=== PATIENT | male | born 1990 | race American Indian/Alaskan Native ===

== ENCOUNTER 2019-11-20 08:37 | Emergency (ER) | payer OTHER ==
--- NOTE | 2019-11-20 09:09 | EDM.PDOC ---
"ED HPI GENERAL MEDICAL PROBLEM - General Chief Complaint: Abdominal Pain Stated Complaint: ABDOMINAL PAIN Time Seen by Provider: 11/20/19 09:00 Source of Information: Reports: Patient, Old Records, RN, RN Notes Reviewed History Limitations: Reports: No Limitations - History of Present Illness INITIAL COMMENTS - FREE TEXT/NARRATIVE: Pt presents to ER from home by POV with c/o RLQ abdominal pain with nausea and feverish feeling. He has not measured his temperature. He also c/o penile discharge and is worried that he might have an STD again. Denies cough, sore throat, chest pain, or any COVID exposures. Onset: Gradual Onset Date: 11/19/19 Duration: Getting Worse, Waxing/Waning Location: Reports: Abdomen Quality: Reports: Ache Severity: Severe Improves with: Reports: None Worsens with: Reports: None Associated Symptoms: Reports: No Other Symptoms Lower Abdomen Pain Score (Numeric/FACES): 10 - Related Data Allergies Allergy/AdvReac Type Severity Reaction Status Date / Time No Known Allergies Allergy Verified 11/20/19 10:06 Home Meds: Home Meds . [No Known Home Meds] 11/20/19 [History] Past Medical History Genitourinary History: Reports: STD Social & Family History - Family History Family Medical History: Noncontributory - Living Situation & Occupation Living situation: Reports: with Family ED ROS GENERAL - Review of Systems Review Of Systems: Comprehensive ROS is negative, except as noted in HPI. ED EXAM, GI/ABD - Physical Exam Exam: See Below Exam Limited By: No Limitations General Appearance: Alert, WD/WN, No Apparent Distress, Anxious, Mild Distress (due to pain). No: Active Emesis Eyes: Bilateral: Normal Appearance (No scleral icterus) Nose: Normal Inspection Throat/Mouth: Normal Inspection, Normal Lips, Normal Voice, No Airway Compromise Head: Atraumatic, Normocephalic Neck: Normal Inspection Respiratory/Chest: No Respiratory Distress, Lungs Clear, Normal Breath Sounds, No Accessory Muscle Use, Chest Non-Tender Cardiovascular: Regular Rate, Rhythm, No Edema, Tachycardia GI/Abdominal Exam: Normal Bowel Sounds, Soft, No Organomegaly, No Distention, No Abnormal Bruit, No Mass, Pelvis Stable, Rebound (RLQ), Tender (RLQ is acutely tender. Also tender at suprapubic area.). No: Guarding, Rigid (Male) Exam: Urethral Discharge Rectal (Males) Exam: Other (Pt refuses JOSE.) Back Exam: Normal Inspection. No: CVA Tenderness (L), CVA Tenderness (R) Extremities: Normal Inspection Neurological: Alert, Oriented, No Motor/Sensory Deficits Psychiatric: Anxious, Flat Affect Skin Exam: Warm, Dry, Intact, Normal Color, No Rash Course - Vital Signs Last Recorded V/S: Last Vital Signs Temp 98 F 11/20/19 08:40 Pulse 81 11/20/19 08:40 Resp 16 11/20/19 08:40 BP 131/76 11/20/19 08:40 Pulse Ox 100 11/20/19 08:40 - Orders/Labs/Meds Orders: Active Orders 24 hr Category Date Time Status Peripheral IV Care [RC] . DIRECTED Care 11/20/19 09:13 Active CHLAMYDIA AND GONORRHEA BY TMA Routine Lab 11/20/19 08:54 Ordered CULTURE URINE [RM] Stat Lab 11/20/19 10:27 Received UA W/MICROSCOPIC [URIN] Stat Lab 11/20/19 10:27 Results Piperacillin/Tazobactam [Zosyn] 3.375 gm Med 11/20/19 10:29 Ordered Sodium Chloride 0.9% [Normal Saline] 100 ml IV ONETIME Sodium Chloride 0.9% [Saline Flush] Med 11/20/19 09:13 Active 10 ml FLUSH ASDIRECTED PRN cefTRIAXone [Rocephin] 1 gm Med 11/20/19 10:27 Ordered Sodium Chloride 0.9% [Normal Saline] 50 ml IV ONETIME Peripheral IV Insertion Adult [OM.PC] Stat Oth 11/20/19 09:13 Ordered Medication Orders Ceftriaxone Sodium 1 gm/ (Sodium Chloride) 50 mls @ 100 mls/hr IV ONETIME ONE Stop: 11/20/19 10:56 Piperacillin Sod/Tazobactam (Sod 3.375 gm/ Sodium Chloride) 100 mls @ 200 mls/hr IV ONETIME ONE Stop: 11/20/19 10:58 Sodium Chloride (Saline Flush) 10 ml FLUSH ASDIRECTED PRN PRN Reason: Keep Vein Open Last Admin: 11/20/19 09:28 Dose: 10 ml Documented by: CAMERON Labs: Laboratory Tests 10/07/20 10/07/20 10/07/20 Range/Units 09:08 09:08 10:27 WBC 11.2 H (5.0-10.0) 10^3/uL RBC 4.72 (4.6-6.2) 10^6/uL Hgb 14.1 (14.0-18.0) g/dL Hct 40.0 (40.0-54.0) % MCV 84.7 (80-100) fL MCH 29.9 (27.0-34.0) pg MCHC 35.3 H (33.0-35.0) g/dL Plt Count 321 (150-450) 10^3/uL Neut % (Auto) 77.0 H (42.2-75.2) % Lymph % (Auto) 13.3 L (20.5-50.1) % [place] % (Auto) 7.4 (2-8) % Eos % (Auto) 2.1 (1.0-3.0) % Baso % (Auto) 0.2 (0.0-1.0) % Sodium 140 (136-145) mmol/L Potassium 3.5 (3.5-5.1) mmol/L Chloride 100 (98-107) mmol/L Carbon Dioxide 32 (21-32) mmol/L Anion Gap 11.5 (7-13) mEq/L BUN 9 (7-18) mg/dL Creatinine 1.03 (0.70-1.30) mg/dL Est Cr Clr Drug Dosing TNP Estimated GFR (MDRD) > 60 BUN/Creatinine Ratio 8.7 (No establ ref range) Glucose 127 H (74-99) mg/dL Calcium 8.7 (8.5-10.1) mg/dL Total Bilirubin 0.4 (0.2-1.0) mg/dL AST 9 L (15-37) U/L ALT 17 (16-63) U/L Alkaline Phosphatase 84 (46-116) U/L Total Protein 7.5 (6.4-8.2) g/dL Albumin 3.2 L (3.4-5.0) g/dL Globulin 4.3 Albumin/Globulin Ratio 0.74 Amylase 34 (25-115) U/L Lipase 67 L (73-393) U/L Urine Color Yellow (YELLOW) Urine Appearance Cloudy (CLEAR) Urine pH 8.0 (5.0-9.0) Ur Specific [place] 1.020 (1.005-1.030) Urine Protein Negative (NEGATIVE) Urine Glucose (UA) Negative (NEGATIVE) Urine Ketones Negative (NEGATIVE) Urine Occult Blood Trace-intact H (NEGATIVE) Urine Nitrite Negative (NEGATIVE) Urine Bilirubin Negative (NEGATIVE) Urine Urobilinogen 0.2 (0.2-1.0) mg/dL Ur Leukocyte Esterase Small H (NEGATIVE) Urine Opiates Screen (NEGATIVE) Ur Oxycodone Screen (NEGATIVE) Urine Methadone Screen (NEGATIVE) Ur Barbiturates Screen (NEGATIVE) U Tricyclic Antidepress (NEGATIVE) Ur Phencyclidine Scrn (NEGATIVE) Ur Amphetamine Screen (NEGATIVE) U Methamphetamines Scrn (NEGATIVE) Urine MDMA Screen (NEGATIVE) U Benzodiazepines Scrn (NEGATIVE) Urine Cocaine Screen (NEGATIVE) U Marijuana (THC) Screen (NEGATIVE) 11/20/19 Range/Units 10:27 WBC (5.0-10.0) 10^3/uL RBC (4.6-6.2) 10^6/uL Hgb (14.0-18.0) g/dL Hct (40.0-54.0) % MCV (80-100) fL MCH (27.0-34.0) pg MCHC (33.0-35.0) g/dL Plt Count (150-450) 10^3/uL Neut % (Auto) (42.2-75.2) % Lymph % (Auto) (20.5-50.1) % [place] % (Auto) (2-8) % Eos % (Auto) (1.0-3.0) % Baso % (Auto) (0.0-1.0) % Sodium (136-145) mmol/L Potassium (3.5-5.1) mmol/L Chloride (98-107) mmol/L Carbon Dioxide (21-32) mmol/L Anion Gap (7-13) mEq/L BUN (7-18) mg/dL Creatinine (0.70-1.30) mg/dL Est Cr Clr Drug Dosing Estimated GFR (MDRD) BUN/Creatinine Ratio (No establ ref range) Glucose (74-99) mg/dL Calcium (8.5-10.1) mg/dL Total Bilirubin (0.2-1.0) mg/dL AST (15-37) U/L ALT (16-63) U/L Alkaline Phosphatase (46-116) U/L Total Protein (6.4-8.2) g/dL Albumin (3.4-5.0) g/dL Globulin Albumin/Globulin Ratio Amylase (25-115) U/L Lipase (73-393) U/L Urine Color (YELLOW) Urine Appearance (CLEAR) Urine pH (5.0-9.0) Ur Specific [place] (1.005-1.030) Urine Protein (NEGATIVE) Urine Glucose (UA) (NEGATIVE) Urine Ketones (NEGATIVE) Urine Occult Blood (NEGATIVE) Urine Nitrite (NEGATIVE) Urine Bilirubin (NEGATIVE) Urine Urobilinogen (0.2-1.0) mg/dL Ur Leukocyte Esterase (NEGATIVE) Urine Opiates Screen Positive H (NEGATIVE) Ur Oxycodone Screen Negative (NEGATIVE) Urine Methadone Screen Negative (NEGATIVE) Ur Barbiturates Screen Negative (NEGATIVE) U Tricyclic Antidepress Negative (NEGATIVE) Ur Phencyclidine Scrn Negative (NEGATIVE) Ur Amphetamine Screen Positive H (NEGATIVE) U Methamphetamines Scrn Positive H (NEGATIVE) Urine MDMA Screen Positive H (NEGATIVE) U Benzodiazepines Scrn Negative (NEGATIVE) Urine Cocaine Screen Negative (NEGATIVE) U Marijuana (THC) Screen Positive H (NEGATIVE) Meds: Medications Generic Name Dose Route Start Last Admin Trade Name Freq PRN Reason Stop Dose Admin Ceftriaxone Sodium 1 gm/ 50 mls @ 100 mls/hr 11/20/19 10:27 Sodium Chloride IV 11/20/19 10:56 ONETIME ONE Piperacillin Sod/Tazobactam 100 mls @ 200 mls/hr 11/20/19 10:29 Sod 3.375 gm/ Sodium Chloride IV 11/20/19 10:58 ONETIME ONE Sodium Chloride 10 ml 11/20/19 09:13 11/20/19 09:28 Saline Flush FLUSH 10 ml ASDIRECTED PRN Administration Keep Vein Open Discontinued Medications Generic Name Dose Route Start Last Admin Trade Name Freq PRN Reason Stop Dose Admin Azithromycin 1,000 mg 11/20/19 10:29 Zithromax PO 11/20/19 10:30 ONETIME ONE Hydromorphone HCl 1 mg 11/20/19 09:13 11/20/19 09:26 Dilaudid IVPUSH 11/20/19 09:14 1 mg ONETIME ONE Administration Hydromorphone HCl 1 mg 11/20/19 10:26 Dilaudid IVPUSH 11/20/19 10:27 ONETIME ONE Sodium Chloride 1,000 mls @ 999 mls/hr 11/20/19 09:13 11/20/19 09:28 Normal Saline IV 11/20/19 10:13 999 mls/hr .BOLUS ONE Administration Iopamidol 100 ml 11/20/19 09:13 11/20/19 09:55 Isovue-300 (61%) IVPUSH 11/20/19 09:14 99 ml ONETIME ONE Administration Ondansetron HCl 4 mg 11/20/19 09:13 11/20/19 09:26 Zofran IV 11/20/19 09:14 4 mg ONETIME ONE Administration Ondansetron HCl 4 mg 11/20/19 10:26 11/20/19 10:50 Zofran IV 11/20/19 10:27 4 mg ONETIME ONE Administration - Radiology Interpretation Free Text/Narrative:: [facility] Final Radiology Report Call: [phone] assistance Online chat: [email or web address] Name: ELISHA HUSSEIN Age: 29Years M Date: 11/20/2019 SSN: -- [id number] Study: CT ABDOMEN PELVIS W CONT Requesting Physician: MIRANDA CHUNG Images: [id number] Addl Studies: Provided Clinical History: RLQ pain w/rebound, suspect appendicitis Contrast: With Contrast Medium: Isovue 300 Contrast Amount: 99 mL Contrast Method: Intravenous (IV) Page 1 of 2 PROCEDURE INFORMATION: Exam: CT Abdomen And Pelvis With Contrast Exam date and time: 11/20/2019 9:44 AM Age: 29 years old Clinical indication: Other: Rlq pain w/rebound, suspect appendicitis TECHNIQUE: Imaging protocol: Computed tomography of the abdomen and pelvis with intravenous contrast. Radiation optimization: All CT scans at this facility use at least one of these dose optimization techniques: automated exposure control; mA and/or kV adjustment per patient size (includes targeted exams where dose is matched to clinical indication); or iterative reconstruction. Contrast material: ISOVUE 300; Contrast volume: 99 ml; Contrast route: INTRAVENOUS (IV); COMPARISON: No relevant prior studies available. FINDINGS: Liver: Normal. Gallbladder and bile ducts: Normal. Pancreas: Normal. Spleen: Normal. Adrenals: Normal. Kidneys and ureters: Normal. Stomach and bowel: Retrocecal appendix with typical cecal positioning. The appendix is mildly enlarged up to 8 mm but filled with fluid and gas. There is questionable appendicolith. No mural hyperenhancement. There is slight infiltration of the fat in the right lower abdomen, not necessarily strictly periappendiceal.. There is mildly increased fluid in distal small bowel. Intraperitoneal space: There is stranding fluid deep in the pelvis and partly encompassing portions of prostate and seminal vesicles. No fluid collecting in the mesentery or paracolic gutters. ELISHA HUSSEIN | Final Radiology Report CONFIDENTIALITY STATEMENT This report is intended only for use by the referring physician, and only in accordance with law. If you received this in error, call [phone]. Page 2 of 2 Vasculature: Benign variant retroaortic left renal vein. Lymph nodes: No inguinal, mesenteric or retroperitoneal adenopathy. Bilateral pelvic lymph nodes are mildly enlarged up to 0.7 cm on short axis. Urinary bladder: Unremarkable as visualized. Reproductive: The prostate is enlarged for age, 4.3 x 4.4 cm in the axial plane. Bones/joints: No fracture or suspicious osseous lesion. Soft tissues: No mass or hernia. IMPRESSION: Abnormal CT abdomen and pelvis with definite evidence of inflammatory disease though not necessarily appendicitis. The small amount of ascites and the greatest region of fatty infiltration is distant from the appendix and there are mildly enlarged pelvic lymph nodes in addition to a prostate which is larger than expected and around which there is fatty infiltration. Clinical correlation for prostatitis/urethritis is recommended. If negative, possibility of very early appendicitis would be more strongly considered. Thank you for allowing us to participate in the care of your patient. Dictated and Authenticated by: Tono Lynne MD 11/20/2019 10:17 AM Central Time ([place] & [place]) - Re-Assessments/Exams Free Text/Narrative Re-Assessment/Exam: 11/20/19 10:45 I thing the pt has two processes present, one being appendicitis, and the other being STD/ infection involving the urethra, prostate, and seminal vesicles. Plan tx pt empirically for STD with Rocephin 1g IVP, and Zithromax 1g po. Appendicitis will be covered with Zosyn 3.375g IV. Pt will be transferred to [facility] for evaluation and treatment by Dr. Thornton. Departure - Departure Time of Disposition: 10:50 Disposition: DC/Tfer to [facility] 02 Condition: Fair Clinical Impression: STD exposure Appendicitis Qualifiers: Appendicitis type: acute appendicitis Acute appendicitis type: with localized peritonitis Appendicitis gangrene presence: without gangrene Appendicitis perf oration presence: without perforation Appendicitis abscess presence: without abscess Qualified Code(s): K35.30 - Acute appendicitis with localized peritonitis, without perforation or gangrene Prostatitis, unspecified Qualifiers: Prostatitis type: unspecified Qualified Code(s): N41.9 - Inflammatory disease of prostate, unspecified - Discharge Information *PRESCRIPTION DRUG MONITORING PROGRAM REVIEWED*: Not Applicable *COPY OF PRESCRIPTION DRUG MONITORING REPORT IN PATIENT IRVIN: Not Applicable Forms: ED Department Discharge, Interfacility Transfer EMTALA Sepsis Event Note (ED) - Focused Exam Vital Signs: Vital Signs Temp Pulse Resp BP Pulse Ox 11/20/19 08:40 98 F 81 16 131/76 100 - My Orders Last 24 Hours: My Active Orders 11/20/19 08:54 CHLAMYDIA AND GONORRHEA BY TMA Routine 11/20/19 09:13 Peripheral IV Care [RC] . DIRECTED Sodium Chloride 0.9% [Saline Flush] 10 ml FLUSH ASDIRECTED PRN Peripheral IV Insertion Adult [OM.PC] Stat 11/20/19 10:27 CULTURE URINE [RM] Stat UA W/MICROSCOPIC [URIN] Stat cefTRIAXone [Rocephin] 1 gm Sodium Chloride 0.9% [Normal Saline] 50 ml IV ONETIME 11/20/19 10:29 Piperacillin/Tazobactam [Zosyn] 3.375 gm Sodium Chloride 0.9% [Normal Saline] 100 ml IV ONETIME - Assessment/Plan Last 24 Hours: My Active Orders 11/20/19 08:54 CHLAMYDIA AND GONORRHEA BY TMA Routine 11/20/19 09:13 Peripheral IV Care [RC] . DIRECTED Sodium Chloride 0.9% [Saline Flush] 10 ml FLUSH ASDIRECTED PRN Peripheral IV Insertion Adult [OM.PC] Stat 11/20/19 10:27 CULTURE URINE [RM] Stat UA W/MICROSCOPIC [URIN] Stat cefTRIAXone [Rocephin] 1 gm Sodium Chloride 0.9% [Normal Saline] 50 ml IV ONETIME 11/20/19 10:29 Piperacillin/Tazobactam [Zosyn] 3.375 gm Sodium Chloride 0.9% [Normal Saline] 100 ml IV ONETIME"
[2019-11-20] MEDS ORDERED: Ondansetron 4 MG/2 ML SDV IV ONE ×2 (09:13→10:26)
[2019-11-20] MEDS ORDERED: Sodium Chloride 0.9% 1,000 ML IV ONE (09:13)
[2019-11-20] MEDS ORDERED: HYDROmorphone 1 MG/ML Syringe IVPUSH ONE ×2 (09:13→10:26)
[2019-11-20] MEDS ORDERED: Iopamidol 612 MG/ML 100 ML Bottle IVPUSH ONE (09:13)
[2019-11-20] MEDS ORDERED: Sodium Chloride 0.9% 10 ML Syringe FLUSH PRN (09:13)
[2019-11-20 09:34] LABS: ANION GAP 11.5 mEq/L (7-13); CHLORIDE,CL 100 mmol/L (98-107); SODIUM,NA 140 mmol/L (136-145)
--- NOTE | 2019-11-20 10:18 | CT ---
PROCEDURE INFORMATION: Exam: CT Abdomen And Pelvis With Contrast Exam date and time: 11/20/2019 9:44 AM Age: 29 years old Clinical indication: Other: Rlq pain w/rebound, suspect appendicitis TECHNIQUE: Imaging protocol: Computed tomography of the abdomen and pelvis with intravenous contrast. Radiation optimization: All CT scans at this facility use at least one of these dose optimization techniques: automated exposure control; mA and/or kV adjustment per patient size (includes targeted exams where dose is matched to clinical indication); or iterative reconstruction. Contrast material: ISOVUE 300; Contrast volume: 99 ml; Contrast route: INTRAVENOUS (IV); COMPARISON: No relevant prior studies available. FINDINGS: Liver: Normal. Gallbladder and bile ducts: Normal. Pancreas: Normal. Spleen: Normal. Adrenals: Normal. Kidneys and ureters: Normal. Stomach and bowel: Retrocecal appendix with typical cecal positioning. The appendix is mildly enlarged up to 8 mm but filled with fluid and gas. There is questionable appendicolith. No mural hyperenhancement. There is slight infiltration of the fat in the right lower abdomen, not necessarily strictly periappendiceal.. There is mildly increased fluid in distal small bowel. Intraperitoneal space: There is stranding fluid deep in the pelvis and partly encompassing portions of prostate and seminal vesicles. No fluid collecting in the mesentery or paracolic gutters. Vasculature: Benign variant retroaortic left renal vein. Lymph nodes: No inguinal, mesenteric or retroperitoneal adenopathy. Bilateral pelvic lymph nodes are mildly enlarged up to 0.7 cm on short axis. Urinary bladder: Unremarkable as visualized. Reproductive: The prostate is enlarged for age, 4.3 x 4.4 cm in the axial plane. Bones/joints: No fracture or suspicious osseous lesion. Soft tissues: No mass or hernia. IMPRESSION: Abnormal CT abdomen and pelvis with definite evidence of inflammatory disease though not necessarily appendicitis. The small amount of ascites and the greatest region of fatty infiltration is distant from the appendix and there are mildly enlarged pelvic lymph nodes in addition to a prostate which is larger than expected and around which there is fatty infiltration. Clinical correlation for prostatitis/urethritis is recommended. If negative, possibility of very early appendicitis would be more strongly considered.
[2019-11-20] MEDS ORDERED: cefTRIAXone 1 GM in Sodium Chloride 0.9% 50 ML IV ONE (10:27)
[2019-11-20] MEDS ORDERED: Piperacillin/Tazobactam 3.375 GM in Sodium Chloride 0.9% 100 ML IV ONE (10:29)
[2019-11-20] MEDS ORDERED: Azithromycin 250 MG Tab PO ONE (10:29)
[2019-11-25 17:46] LABS: C.TRACHOMATIS BY TMA Negative (Negative); N.GONORRHOEAE BY TMA Positive (Negative)
== END 2019-11-20 11:30 ==
LOC: DL.ED 08:37
DX: K35.30 Acute appendicitis with localized peritonitis, without perforation or gangrene (principal); N41.9 Inflammatory disease of prostate, unspecified; Z20.2 Contact with and (suspected) exposure to infections with a predominantly sexual mode of transmission
CPT/HCPCS: 36415; 74177; 80053; 80305; 81001; 82150; 83690; 85025; 87086; 87491; 87591; 96361; 96365; 96375; 96376; 99285; A9270; J0696; J1170; J2405; J2543; J7030; J7050; Q9967